=== PATIENT | female | born 1990 | race Caucasian/White ===

== ENCOUNTER 2020-08-02 14:32 | Emergency (ER) | payer SELFPAY ==
[2020-08-02] MEDS ORDERED: LIDOCAINE 1% MPF 5 ML VIAL ONE (15:06)
--- NOTE | 2020-08-02 15:25 | ER ---
Nurse's Notes [facility] Name: Katia Vincent Age: 30 yrs Sex: Female : 1990 Arrival Date: 08/02/2020 Time: 14:34 Bed 14 Private MD: Diagnosis: Periapical abscess without sinus Presentation: 08/02 14:41 Chief complaint: Patient states: tooth abscess x 2 days. Pain and swelling on L side of ca1 face. Pain radiating to L ear and L side of neck. Coronavirus screen: Client denies travel out of the [place] in the last 14 days. At this time, the client does not indicate any symptoms associated with coronavirus-19. Ebola Screen: Patient negative for fever greater than or equal to 101.5 degrees Fahrenheit, and additional compatible Ebola Virus Disease symptoms Patient denies exposure to infectious person. Patient denies travel to an Ebola-affected area in the 21 days before illness onset. No symptoms or risks identified at this time. Initial Sepsis Screen: Does the patient meet any 2 criteria? No. Patient's initial sepsis screen is negative. Does the patient have a suspected source of infection? No. Patient's initial sepsis screen is negative. Risk Assessment: Do you want to hurt yourself or someone else? Patient reports no desire to harm self or others. Onset of symptoms was August 02, 2020. 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 - Social history:: Smoking status: Patient reports the use of cigarette tobacco products, smokes one-half pack cigarettes per day. Screenin:00 Abuse screen: Denies threats or abuse. Denies injuries from another. Nutritional ss screening: No deficits noted. Tuberculosis screening: Never had TB. Fall Risk None identified. Assessment: 15:00 General: Appears uncomfortable, Behavior is calm, cooperative, Denies fever, feeling ss ill, fatigue, chills. Pain: Complains of pain in left jaw Pain currently is 10 out of 10 on a pain scale. Quality of pain is described as aching, tender, throbbing, Pain began yesterday, worse this morning Is continuous. Neuro: Level of Consciousness is awake, alert, obeys commands, Oriented to person, place, time, situation. Cardiovascular: Capillary refill < 3 seconds is brisk in bilateral fingers. Respiratory: Airway is patent Respiratory effort is even, unlabored, Respiratory pattern is regular, symmetrical. GI: Patient currently denies diarrhea, nausea, vomiting. : No signs and/or symptoms were reported regarding the genitourinary system. EENT: Nares are clear Oral mucosa is moist. Derm: Skin is intact, is healthy with good turgor, Skin is dry, Skin is pink, warm \T\ dry. normal. Musculoskeletal: Swelling present in left jaw. Vital Signs: 14:41 BP 119 / 82; Pulse 81; Resp 17 S; Temp 97.6(TE); Pulse Ox 100% on R/A; Weight 65.77 kg ca1 (R); Height 5 ft. 3 in. (160.02 cm) (R); Pain 10/10; 14:41 Body Mass Index 25.69 (65.77 kg, 160.02 cm) ca1 ED Course: 14:34 Patient arrived in ED. mr 14:38 Sourav Penn PA is PHCP. jr8 14:38 Joshua Wolf MD is Attending Physician. jr8 14:43 Triage completed. ca1 14:44 Arm band placed on right wrist. ca1 15:00 Patient has correct armband on for positive identification. Bed in low position. Call ss light in reach. 15:14 Nichole Chacko, BENI is Primary Nurse. ss 15:23 Fernando Antonio DDS is Referral Physician. jr8 15:47 NEEDLE ASPIRATION. DENTAL ABSCESS. PT TOLERATED WELL. Patient did not have IV access ss during this emergency room visit. Administered Medications: 15:15 Drug: Lidocaine (1 %) 5 mg {Note: 3 mL administered to affected area by edmar Viveros.} Route: Infiltration; 15:32 Drug: Clindamycin 600 mg {Note: 2 mL given in L gluteus. 2 mL given in R gluteus.} ss Route: IM; Site: left deltoid; 15:47 Follow up: Response: No adverse reaction ss 15:33 Drug: Decadron 10 mg Route: IM; Site: right deltoid; 15:47 Follow up: Response: No adverse reaction; Medication administered at discharge. Outcome: 15:24 Discharge ordered by MD. pruitt 15:47 Discharged to home ambulatory. 15:47 Condition: good 15:47 Discharge instructions given to patient, Instructed on discharge instructions, follow up and referral plans. medication usage, Demonstrated understanding of instructions, follow-up care, medications, Prescriptions given X 3. 15:50 Patient left the ED. ss Signatures: Chastity Martínez mr Nichole Chacko RN RN ss Sourav Penn PA PA jr8 Acob, Cheryl, RN RN ca1
--- NOTE | 2020-08-02 15:25 | EDPHYS ---
Physician Documentation [facility] Name: Katia Vincent Age: 30 yrs Sex: Female : 1990 Arrival Date: 08/02/2020 Time: 14:34 Bed 14 Private MD: ED Physician Joshua Wolf HPI: 08/02 15:18 This 30 yrs old Female presents to ER via Ambulatory with complaints of jr8 Abscess. 15:21 The patient presents with pain, swelling. The problem is located in the left jaw. jr8 Onset: The symptoms/episode began/occurred acutely, yesterday. Duration: The symptoms are continuous. Modifying factors: The symptoms are alleviated by nothing, the symptoms are aggravated by nothing. Associated signs and symptoms: The patient has no apparent associated signs or symptoms. Severity of symptoms: At their worst the symptoms were moderate, in the emergency department the symptoms are unchanged. The patient has not experienced similar symptoms in the past. The patient has not recently seen a physician. 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 - Social history:: Smoking status: Patient reports the use of cigarette tobacco products, smokes one-half pack cigarettes per day. ROS: 15:21 Eyes: Negative for injury, pain, redness, and discharge, Neck: Negative for injury, jr8 pain, and swelling, Cardiovascular: Negative for chest pain, palpitations, and edema, Respiratory: Negative for shortness of breath, cough, wheezing, and pleuritic chest pain, Abdomen/GI: Negative for abdominal pain, nausea, vomiting, diarrhea, and constipation, Back: Negative for injury and pain, MS/Extremity: Negative for injury and deformity, Skin: Negative for injury, rash, and discoloration, Neuro: Negative for headache, weakness, numbness, tingling, and seizure. 15:21 ENT: Positive for dental pain, Gum pain Exam: 15:21 Eyes: Pupils equal round and reactive to light, extra-ocular motions intact. Lids and jr8 lashes normal. Conjunctiva and sclera are non-icteric and not injected. Cornea within normal limits. Periorbital areas with no swelling, redness, or edema. Neck: Trachea midline, no thyromegaly or masses palpated, and no cervical lymphadenopathy. Supple, full range of motion without nuchal rigidity, or vertebral point tenderness. No Meningismus. Cardiovascular: Regular rate and rhythm with a normal S1 and S2. No gallops, murmurs, or rubs. Normal PMI, no JVD. No pulse deficits. Respiratory: Lungs have equal breath sounds bilaterally, clear to auscultation and percussion. No rales, rhonchi or wheezes noted. No increased work of breathing, no retractions or nasal flaring. Skin: Warm, dry with normal turgor. Normal color with no rashes, no lesions, and no evidence of cellulitis. MS/ Extremity: Pulses equal, no cyanosis. Neurovascular intact. Full, normal range of motion. Neuro: Awake and alert, GCS 15, oriented to person, place, time, and situation. Cranial nerves II-XII grossly intact. Motor strength 5/5 in all extremities. Sensory grossly intact. Cerebellar exam normal. Normal gait. 15:21 Head/face: Noted is swelling, that is moderate, of the left jaw. 15:21 ENT: Exam is negative for earache, ear discharge, TM abnormalities, nasal discharge, Mouth: Lips: moist, Oral mucosa: pink and intact, moist, Gums: reddened, swollen, on the lower left first molar and lower left second bicuspid, Tongue: is moist, abscess, that is minimal, of the lower left second bicuspid, Posterior pharynx: is normal. Vital Signs: 14:41 BP 119 / 82; Pulse 81; Resp 17 S; Temp 97.6(TE); Pulse Ox 100% on R/A; Weight 65.77 kg ca1 (R); Height 5 ft. 3 in. (160.02 cm) (R); Pain 10/10; 14:41 Body Mass Index 25.69 (65.77 kg, 160.02 cm) ca1 Procedures: 15:17 I \T\ D: Incision and drainage was performed for an abscess of the left gum line Incised jr8 with 18 G needle. Drained small amount purulent fluid. bloody fluid. the patient tolerated the procedure well. Nerve block: (dental) of left inferior alveolar nerve, Medication: Lidocaine 1% without epinephrine Amount: 2 mls were injected, Effect: the patient's symptoms are improved, markedly, Set up for procedure. Performed by Sourav CLARK Patient tolerated well. MDM: 14:49 Patient medically screened. jr8 15:17 Data reviewed: vital signs, nurses notes, and as a result, I will discharge patient. jr8 Data interpreted: Pulse oximetry: on room air is 100 %. Interpretation: normal. Counseling: I had a detailed discussion with the patient and/or guardian regarding: the historical points, exam findings, and any diagnostic results supporting the discharge/admit diagnosis, the need for outpatient follow up, a dentist, to return to the emergency department if symptoms worsen or persist or if there are any questions or concerns that arise at home. Administered Medications: 15:15 Drug: Lidocaine (1 %) 5 mg {Note: 3 mL administered to affected area by edmar Viveros.} Route: Infiltration; 15:32 Drug: Clindamycin 600 mg {Note: 2 mL given in L gluteus. 2 mL given in R gluteus.} Route: IM; Site: left deltoid; 15:47 Follow up: Response: No adverse reaction 15:33 Drug: Decadron 10 mg Route: IM; Site: right deltoid; 15:47 Follow up: Response: No adverse reaction; Medication administered at discharge. Disposition: 16:27 Co-signature as Attending Physician, Joshua Wolf MD I agree with the assessment and kdr plan of care. Disposition: 08/02/20 15:24 Discharged to Home. Impression: Periapical abscess without sinus. - Condition is Stable. - Discharge Instructions: Dental Abscess, Dental Pain. - Prescriptions for Clindamycin HCl 300 mg Oral Capsule - take 1 capsule by ORAL route every 6 hours for 10 days; 40 capsule. Ibuprofen 800 mg Oral Tablet - take 1 tablet by ORAL route every 12 hours As needed take with food; 20 tablet. Tylenol- Codeine #3 300-30 mg Oral Tablet - take 2 tablets by ORAL route every 6 hours As needed; 12 tablet. - Medication Reconciliation Form, Thank You Letter, Antibiotic Education, Prescription Opioid Use form. - Follow up: Fernando Antonio DDS; When: 24 Hours; Reason: Recheck today's complaints, Continuance of care, Re-evaluation by your physician. - Problem is new. - Symptoms have improved. Signatures: Joshua Wolf MD MD [facility] Nichole Chacko, BENI RN ss Sourav Penn PA PA jr8 Meche Jacobson RN RN ca1 Corrections: (The following items were deleted from the chart) 15:50 15:24 08/02/2020 15:24 Discharged to Home. Impression: Periapical abscess without ss sinus. Condition is Stable. Forms are Medication Reconciliation Form, Thank You Letter, Antibiotic Education, Prescription Opioid Use. Follow up: Fernando Antonio; When: 24 Hours; Reason: Recheck today's complaints, Continuance of care, Re-evaluation by your physician. Problem is new. Symptoms have improved. jr8
[2020-08-02] MEDS ORDERED: dexAMETHasone 10 MG/ML VIAL ONE (15:37)
[2020-08-02] MEDS ORDERED: CLINDAMYCIN IV 150 MG/ML (4 mL) VIAL ONE (15:37)
[2020-08-02 15:58] VITALS: BP 119/82; TEMP 97.6; O2SAT 100
== END 2020-08-02 15:50 | disposition home or self-care (01) ==
LOC: ER 14:32
PROC: 0C96XZZ Drainage of Lower Gingiva, External Approach (ICD-10-PCS; principal; 2020-08-02)
DX: K04.7 Periapical abscess without sinus (principal); F17.210 Nicotine dependence, cigarettes, uncomplicated; Z88.1 Allergy status to other antibiotic agents
CPT/HCPCS: 96372; 99283; J1100; S0077

== ENCOUNTER 2020-09-30 11:08 | Emergency (ER) | payer SELFPAY ==
--- OUTSIDE RECORDS SUMMARY | 2020-09-30 11:11 | XMS REPORT | Clinical Summary ---
:1990 Author Organization [facility] Address [address] [place] [address] Care Team Providers Name Role Phone Asked, No Pcp Primary Care Provider Unavailable Allergies Active Allergy Reactions Severity Noted Date Comments Sulfamethoxazole-Trimethoprim Rash Low 03/23/2019 Medications Medication Sig Dispensed Refills Start Date End Date Status Take 1 tablet by 0 Act steve vit,[id number] mouth daily. 29 mg iron- 1 mg tablet per tablet docusate sodium Take 100 mg by 0 Active (COLACE) 100 MG mouth 2 (two) capsule times a day. ferrous sulfate 325 Take 325 mg by 0 Active (65 FE) MG tablet mouth daily with breakfast. Active Problems Problem Noted Date Gestational hypertension without significant proteinur ia 04/19/2019 Spotting in , antepartum condition or complic ation 04/09/2019 32 weeks gestation of 04/09/2019 Bacterial vaginosis 04/09/2019 03/23/2019 Immunizations Name Administration Dates Next Due Rho (D) Immune Globulin 03/11/2019 Tdap 04/07/2019 Surgical History Surgery Date Site/Laterality Comments DELIVERY, 04/20/2019 Abdomen/N/A Procedure: DE LIVERY, ; Surgeon: Gail Shirley MD; Location: [facility] [place] L&D OR; Service : Gynecology; Laterality: N/A; Medical History Medical History Date Comments Depression history of occasiona l depression with anxiety, no medication Family History Medical History Relation Name Comments Stroke Maternal Grandfather Hypertension Paternal Grandfather No Known Problems Paternal Grandmother Relation Name Status Comments Father Alive Maternal Grandfather Maternal Grandmother Alive Mother Alive Paternal Grandfather Alive Paternal Grandmother Alive Social History Tobacco Use Types Packs/Day Years Used Date Former Smoker Quit: 08/28/20 18 Smokeless Tobacco: Never Used Alcohol Use Drinks/Week oz/Week Comments No Alcohol Habits Answer Date Recorded How often do you have a drink containing alcohol? Never 02/03/2019 How many drinks containing alcohol do you have on a typical Not asked day when you are drinking? How often do you have six or more drinks on one occasion? No t asked Sex Assigned at Date Recorded Not on file Obstetrics History Grav Para Term Pre Abrt (TAB) (SAB) (Ect) Mult Lvng Comments 1 1 1 1 2 Date Outcome GA Total Labor/2nd/3rd Weight Sex Delivery Anes PTL Bonine A 1 A5 Name Clin Labor 04/20 34w 0h 02m 0h 02m 2 lb F [facility]1 oz l ng NNE,C , [facility] Chelsey l EY yn GIRL Jenelle Price MD Complications: None, IUGR (intrauterine growth retardation) affecting mother, second trimester, fetus 1 Delivery Location: [facility] ( [facility] [place] [facility] DELIVERY) 04/20/2019 34w1d 0h 0h 4 lb F CS-LTranv Spinal N Living 8 8 KATIA ARMENTA, 01m 01m 6.9 GIRL B Ros erica Price MD Complications: None Delivery Location: [facility] ( [facility] [place] [facility]IV[facility]) Last Filed Vital Signs Not on file Plan of Treatment Not on file Results Not on fileafter 09/30/2019 Insurance Payer Benefit Plan / Subscriber ID Effective Dates Phone Addre ss Type Group [facility] [place] [facility] [place] [facility] [id number] 2016-Present [facility] Advance Directives For more information, please contact: [phone] Type Date Recorded Patient Vp Scientific Explanati on Advance Directives, Living Will 02/03/2019 12:02 AM and 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
[2020-09-30] MEDS ORDERED: HYDROCODONE/APAP 5/325 MG TAB ONE (13:06)
[2020-09-30] MEDS ORDERED: TETANUS & DIPHTHERIA TOX,ADULT 0.5 ML VIAL ONE (13:06)
[2020-09-30] MEDS ORDERED: LIDOCAINE 1% W/EPI 1:100,000 MDV 50 ML VIAL ONE (13:06)
--- NOTE | 2020-09-30 13:14 | RAD REPORT ---
EXAM DESCRIPTION: RAD -Hand Left 3 View - 09/30/2020 1:02 pm CLINICAL HISTORY: Left hand pain status post injury FINDINGS: No fracture or dislocation is seen.
--- NOTE | 2020-09-30 13:28 | EDPHYS ---
Physician Documentation [facility] Name: Katia Vincent Age: 30 yrs Sex: Female : 1990 Arrival Date: 09/30/2020 Time: 11:09 Bed 17 Private MD: ED Physician Hilton Hawley HPI: 09/30 12:48 This 30 yrs old Female presents to ER via Ambulatory with complaints of cp Laceration To Hand. 12:48 The patient has a laceration occurred at home, and there are no complicating factors. cp Patient accidently stabbed left hand while using knife to open packaging of toy. Onset: The symptoms/episode began/occurred just prior to arrival. 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 - Social history:: Smoking status: Patient reports the use of cigarette tobacco products, smokes one-half pack cigarettes per day. ROS: 12:50 Constitutional: Negative for body aches, chills, fever, poor PO intake. cp 12:50 Skin: Positive for laceration(s), of the palm of left hand. cp 12:50 Neuro: Negative for numbness, weakness. 12:50 All other systems are negative. Exam: 12:55 Constitutional: The patient appears in no acute distress, alert, awake, well developed, cp well nourished, uncomfortable. 12:55 Musculoskeletal/extremity: ROM: limited active range of motion due to pain, in the left cp hand, Tendon exam: specific tendon testing normal through active and passive range of motion 12:55 Skin: injury, laceration(s), the wound is approximately 2 cm(s), of the palm of left hand, that can be described as clean, no foreign body, linear, with mild bleeding. Vital Signs: 12:16 BP 123 / 90; Pulse 81; Resp 17; Temp 98.1; Pulse Ox 100% ; Weight 65.77 kg; Height 5 jl7 ft. 3 in. (160.02 cm); Pain 10/10; 13:30 BP 121 / 79; Pulse 86; Resp 16 S; Pulse Ox 100% on R/A; ca1 12:16 Body Mass Index 25.69 (65.77 kg, 160.02 cm) jl7 Laceration: 13:30 Wound Repair of 2cm ( 0.8in ) subcutaneous laceration to palm of left hand. Linear cp shaped.. Distal neuro/vascular/tendon intact. Anesthesia: Wound infiltrated with 5 mls of 1% lidocaine w/ Epi. Wound prep: Moderate cleansing by me, Wound irrigation by me. Skin closed with 3 4-0 Prolene using simple sutures and sterile technique. Dressed with 4x4's, Kerlix. Patient tolerated well. MDM: 12:31 Patient medically screened. cp 13:00 Differential diagnosis: superficial laceration, tendon injury, open fracture. cp 13:26 Data reviewed: vital signs, nurses notes, radiologic studies, plain films. cp 13:26 Counseling: I had a detailed discussion with the patient and/or guardian regarding: the cp historical points, exam findings, and any diagnostic results supporting the discharge/admit diagnosis, radiology results, to return to the emergency department if symptoms worsen or persist or if there are any questions or concerns that arise at home. Response to treatment: the patient's symptoms have markedly improved after treatment, and as a result, I will discharge patient. 09/30 12:43 Order name: XRAY Hand LEFT 3 View cp 09/30 12:43 Order name: Dressing - Wound; Complete Time: 12:49 cp 09/30 12:43 Order name: Gloves, Sterile; Complete Time: 12:48 cp 09/30 12:43 Order name: Setup Suture Tray; Complete Time: 12:49 cp 09/30 13:15 Order name: Wound Care: please clean and irrigate wound; Complete Time: 13:52 cp 09/30 13:45 Order name: Splint - Wrist; Complete Time: 14:15 cp Administered Medications: 12:55 Drug: HYDROcodone-acetaminophen 5 mg-325 mg 1 tabs {Note: rass 0.} Route: PO; ca1 13:28 Follow up: Response: No adverse reaction; Pain is decreased; RASS: Alert and Calm (0) ca1 12:58 Drug: Tetanus-Diphtheria Toxoid Adult 0.5 ml {Research Administrator: [employer]. Exp: ca1 02/08/2022. Lot #: [id number]. } Route: IM; Site: right deltoid; 13:28 Follow up: Response: No adverse reaction ca1 13:28 Drug: Lidocaine-Epinephrine -1%: (1:100,000) 10 ml {Note: by AMBER Gama.} Volume: ca1 20 ml; Route: Infiltration; Disposition: 13:30 Chart complete. cp Disposition: 09/30/20 13:27 Discharged to Home. Impression: Laceration without foreign body of left hand. - Condition is Stable. - Discharge Instructions: Laceration Care, Adult. - Prescriptions for Keflex 500 mg Oral Capsule - take 1 capsule by ORAL route every 8 hours for 10 days; 30 capsule. - Medication Reconciliation Form, Thank You Letter, Antibiotic Education, Prescription Opioid Use, Work release form form. - Follow up: Private Physician; When: 7 - 10 days; Reason: Staple/Suture removal. - Problem is new. - Symptoms have improved. Addendum: 10/01/2020 17:56 Co-signature as Attending Physician, Hilton Hawley MD I agree with the assessment and c collins plan of care. Signatures: Dispatcher [employer] EDCA Hilton Hawley MD MD cha Page, Corey, PA PA cp Leal, Jahala RN RN jl7 Meche Jacobson RN RN ca1 Corrections: (The following items were deleted from the chart) 09/30 14:16 13:27 09/30/2020 13:27 Discharged to Home. Impression: Laceration without foreign body ca1 of left hand. Condition is Stable. Forms are Medication Reconciliation Form, Thank You Letter, Antibiotic Education, Prescription Opioid Use. Follow up: Private Physician; When: 7 - 10 days; Reason: Staple/Suture removal. Problem is new. Symptoms have improved. cp
--- NOTE | 2020-09-30 13:28 | ER ---
Nurse's Notes [facility] Name: Katia Vincent Age: 30 yrs Sex: Female : 1990 Arrival Date: 09/30/2020 Time: 11:09 Bed 17 Private MD: Diagnosis: Laceration without foreign body of left hand Presentation: 09/30 12:16 Chief complaint: Patient states: Putting together a toy and stabbed left hand with jl7 pocket knife. Coronavirus screen: Client denies travel out of the [place] in the last 14 days. At this time, the client does not indicate any symptoms associated with coronavirus-19. Ebola Screen: No symptoms or risks identified at this time. Complicating Factors: The type of wound is a puncture. Initial Sepsis Screen: Does the patient meet any 2 criteria? No. Patient's initial sepsis screen is negative. Does the patient have a suspected source of infection? No. Patient's initial sepsis screen is negative. Risk Assessment: Do you want to hurt yourself or someone else? Patient reports no desire to harm self or others. Onset of symptoms was September 30, 2020 at 11:00. Care prior to arrival: None. 12:16 Method Of Arrival: Ambulatory [facility] 12:16 Acuity: WALT 3 jl7 Triage Assessment: 12:21 General: Appears in no apparent distress. uncomfortable, Behavior is calm, cooperative, jl7 appropriate for age, crying. Pain: Complains of pain in palm of left hand Pain currently is 10 out of 10 on a pain scale. Injury Description: Laceration. BUSINESS SERVICES INTERN: 12:16 LMP 09/23/2020 jl7 Historical: - Allergies: 12:21 Bactrim; jl7 - Home Meds: 12:21 None [Active]; jl7 - PMHx: 12:21 None; jl7 - PSHx: 12:21 ; jl7 - Immunization history:: Adult Immunizations not up to date, Last tetanus immunization: unknown. - Social history:: Smoking status: Patient reports the use of cigarette tobacco products, smokes one-half pack cigarettes per day. Screenin:30 Abuse screen: Denies threats or abuse. Denies injuries from another. Nutritional ca1 screening: No deficits noted. Tuberculosis screening: No symptoms or risk factors identified. Fall Risk None identified. Assessment: 12:30 General: Appears in no apparent distress. comfortable, Behavior is calm, cooperative, ca1 appropriate for age. Pain: Complains of pain in palm of left hand Pain currently is 8 out of 10 on a pain scale. Neuro: Level of Consciousness is awake, alert, obeys commands, Oriented to person, place, time, situation. Derm: Skin is healthy with good turgor, Skin is pink, warm \T\ dry. Musculoskeletal: Circulation, motion, and sensation intact. Capillary refill < 3 seconds. Injury Description: Laceration sustained to palm of left hand is clean, 0.5 to 2.5 cm long, bleeding moderately, was sustained less than 30 minutes ago. is bleeding moderately. 13:30 Reassessment: Patient appears in no apparent distress at this time. Patient and/or ca1 family updated on plan of care and expected duration. Pain level reassessed. Patient is alert, oriented x 3, equal unlabored respirations, skin warm/dry/pink. Vital Signs: 12:16 BP 123 / 90; Pulse 81; Resp 17; Temp 98.1; Pulse Ox 100% ; Weight 65.77 kg; Height 5 jl7 ft. 3 in. (160.02 cm); Pain 10/10; 13:30 BP 121 / 79; Pulse 86; Resp 16 S; Pulse Ox 100% on R/A; ca1 12:16 Body Mass Index 25.69 (65.77 kg, 160.02 cm) jl7 ED Course: 11:09 Patient arrived in ED. ag5 11:11 Dressings: Kerlix 4X4s applied to wound in [facility] prior to triage. em1 11:56 Hilton Campos PA is PHCP. cp 12:16 Arm band placed on right wrist. jl7 12:18 Triage completed. jl7 12:21 Meche Jacobson, BENI is Primary Nurse. ca1 12:21 Hilton Hawley MD is Attending Physician. ca1 12:30 Patient has correct armband on for positive identification. Bed in low position. Call ca1 light in reach. Side rails up X 1. Pulse ox on. NIBP on. Warm blanket given. 13:02 XRAY Hand LEFT 3 View In Process Unspecified. EDMS 13:30 Assist provider with laceration repair on palm of left hand that was 2.5 cm. or less ca1 using sutures. Set up tray. Performed by Meche Jacobson RN Dressed with 4X4s, Kerlix, Patient tolerated well. 13:54 Patient did not have IV access during this emergency room visit. ca1 14:15 Velcro wrist splint applied to left wrist. ca1 Administered Medications: 12:55 Drug: HYDROcodone-acetaminophen 5 mg-325 mg 1 tabs {Note: rass 0.} Route: PO; ca1 13:28 Follow up: Response: No adverse reaction; Pain is decreased; RASS: Alert and Calm (0) ca1 12:58 Drug: Tetanus-Diphtheria Toxoid Adult 0.5 ml {Box Brander: [employer]. Exp: ca1 02/08/2022. Lot #: [id number]. } Route: IM; Site: right deltoid; 13:28 Follow up: Response: No adverse reaction ca1 13:28 Drug: Lidocaine-Epinephrine -1%: (1:100,000) 10 ml {Note: by AMBER Gama.} Volume: ca1 20 ml; Route: Infiltration; Outcome: 13:27 Discharge ordered by MD. cp 14:16 Discharged to home ambulatory. ca1 14:16 Condition: stable 14:16 Discharge instructions given to patient, Instructed on discharge instructions, follow up and referral plans. medication usage, wound care, Demonstrated understanding of instructions, follow-up care, medications, wound care, Prescriptions given X 1. 14:16 Patient left the ED. ca1 Signatures: Dispatcher [employer] EDMS Kieran Meier em1 Hilton Campos PA PA cp Leal, Jahala, RN RN jl7 Acob, Cheryl, RN RN ca1 Andressa Corona [facility]
[2020-10-04 15:59] VITALS: TEMP 98.1; O2SAT 100
[2020-10-04 16:00] VITALS: BP 121/79
== END 2020-09-30 14:16 | disposition home or self-care (01) ==
LOC: ER 11:08
PROC: 0JQK0ZZ Repair Left Hand Subcutaneous Tissue and Fascia, Open Approach (ICD-10-PCS; principal; 2020-09-30)
DX: S61.412A Laceration without foreign body of left hand, initial encounter (principal); W26.0XXA Contact with knife, initial encounter; Y93.89 Activity, other specified; Y92.009 Unspecified place in unspecified non-institutional (private) residence as the place of occurrence of the external cause; Z23 Encounter for immunization; Z88.1 Allergy status to other antibiotic agents; F17.210 Nicotine dependence, cigarettes, uncomplicated
CPT/HCPCS: 90471; 90714; 99284